=== PATIENT | female | born 1935 | race Caucasian/White ===

== ENCOUNTER 2016-07-18 12:04 | Emergency (ER) | payer MEDICARE, OTHER ==
--- NOTE | 2016-07-18 12:04 | ED.REPORT ---
HPI-Trauma Minor / Fall Date of Service July 18, 2016 ED Provider: Dr. Vora Pt is an 81 year old female with a hx of chronic back pain presenting to the ED via EMS after falling down 8 steps in a wheelchair just prior to arrival. She complains of lower back pain, mild neck pain, right arm pain, left hip pain and several abrasions. The pt was sitting in her wheelchair and thought the wheels were locked when they weren't so she rolled down the cement stairs. Denies LOC, hitting her head, new numbness or weakness, chest pain, SOB, abd pain. EMS report a GCS of 15. Pt takes 2 hydrocodone daily. Nursing Notes Stated Complaint: FALL Chief Complaint: Fall Nursing Notes Reviewed: Yes Scheduled Cephalexin (Cephalexin) 500 Mg Tablet 500 MG PO TID Scheduled PRN Bacitracin (Bacitracin Ointment) 28.4 Gm Oint...g. 1 APPLIC TP PRN PRN PRN wound care Hydrocodone-Acetaminophen 5-325 mg (Hydrocodone-Acetaminophen 5-325 mg) 1 Each Tablet 1-2 TABLET PO Q6H PRN PRN For Pain General Time Seen by MD: 12:04 Chief Complaint Fall down stairs Hx Obtained From: Patient, EMS Arrived By: Ambulance Onset Occurred: Just prior to arrival Symptom Duration: Since onset Caused by: Accidental, Fall down stairs Location: Arm right Back Neck Quality: Painful Severity: Current: Moderate Severity: Maximum: Severe Context: Immunizations Unknown Recent Healthcare: No recent doctor visit, No recent hospitalization Similar Sx Previous: No Risk Factors Head CT Imaging Inclusion Criteria: >/= 16 yo age GCS of 14 OR 15 Presentation w/in 24 hrs. Patient Presents WITHOUT: Loss of Conciousness, PostTraumatic Amnesia Consider Non Contrast CT for: >/= 60 yo Age Fall Down Steps >/= 5 WITHOUT LOCNo Focal Neuro Deficit, No GCS < 15, No Severe Headache RF Statements: Risk factors reviewed Past Medical History Past Medical History chronic back pain Past Surgical History hx of multiple back and neck surgeries Smoking History Current Every Day Smoker Social History Alcohol Use: Denies alcohol use Drug Use: Denies drug use Ambulatory Status Wheelchair Review of Systems Musculoskeletal: Reports: Back pain, Joint pain (Left hip), Neck pain Neurologic: Denies: Change LOC, Focal weakness, Headache, Numbness Complete sys rev & neg: except as marked. Physical Exam Initial Vital Signs See trauma flow sheet (vitals were normal) Initial VS: Reviewed Cardiovascular: Regular rate & rhythm, Heart sounds normal, Intact distal pulses Skin: Warm, Dry, No cyanosis Neurologic: Alert, Oriented, Nonfocal Psychiatric: Mood/affect normal, Behavior normal, Normal thought content General/Constitutional: Awake, Alert, Well appearing Neck: Supple Mild neck pain in C collar, mostly chronic. Head / Eyes: Normocephalic, PERRL, EOMI Abrasion to nose. No other signs of trauma. Respiratory / Chest: Breath sounds NL, Breath sounds = bilat, No respiratory distress, No chest tenderness, No chest wall deformity Not tachypnic or dyspnic. Upper Extremity / MS: Neurologic intact, Vascular intact Abrasions right elbow. Preserved flexion, extension, pronation and supination. No signs of fracture. Lower Extremity / Pelvis / MS: Neurologic intact, Vascular intact, Pelvis stable Severe multiple abrasions to dorsum of feet and several toes. Complete avulsion of left great toe. Weakness and numbness of both LE which is chronic. Trace right hip pain. Interpretation & Diagnostics Lab Results Interpretation Result Diagram: 07/18/16 1213 07/18/16 1213 Test 07/18/16 12:10 07/18/16 12:13 Prothrombin Time 10.0sec (8.1-12.5) Prothromb Time International Ratio 0.94ratio Activated Partial Thromboplast Time 25.5sec (22.8-33.0) White Blood Count 10.9th/mm3 (3.8-10.1) Red Blood Count 4.75mil/mm3 (3.90-5.20) Hemoglobin 14.6g/dL (12.0-15.6) Hematocrit 44.5% (35.0-46.0) Mean Corpuscular Volume 93.7fL (81-100) Mean Corpuscular Hemoglobin 30.7pg (27.0-35.0) Mean Corpuscular Hemoglobin Concent 32.8% (32.0-37.0) Red Cell Distribution Width 14.2% (12.3-15.4) Platelet Count 266bil/L (150-400) Neutrophils (%) (Auto) 74.1% (40-74) Lymphocytes (%) (Auto) 14.8% (14-46) Monocytes (%) (Auto) 7.3% (4-12) Eosinophils (%) (Auto) 2.9% (0-5) Basophils (%) (Auto) 0.3% (0-3) Sodium Level 142mEq/L (134-144) Potassium Level 4.3mEq/L (3.5-5.2) Chloride Level 104mEq/L (97-108) Carbon Dioxide Level 24mmol/L (18-29) Blood Urea Nitrogen 16mg/dL (8-27) Creatinine 0.90mg/dL (0.57-1.00) Estimat Glomerular Filtration Rate 86mL/min (>59) Glucose Level 131mg/dL (60-99) Calcium Level 9.2mg/dL (8.5-10.1) Magnesium Level 2.1mg/dL (1.6-2.6) Total Bilirubin 0.5mg/dL (0.0-1.2) Aspartate Amino Transf (AST/SGOT) 34U/L (0-50) Alanine Aminotransferase (ALT/SGPT) 26U/L (0-32) Alkaline Phosphatase 137U/L (25-165) Total Protein 7.1g/dL (6.4-8.4) Albumin 3.8g/dL (3.4-5.0) Alcohols < 10mg/dL (0-10) Lab Results Interpretation: CBC normal CMP normal X-Ray Chest Interpretation Chest Xray Interpretation: IMPRESSION: 1. No definite acute traumatic abnormality. Dictated by: Michael Mary M.D. on 07/18/2016 at 13:10 View: Portable, 1 view Interpretation / Wet Read by: Interpret - Radiologist X-Ray Interpretation Xray Interpretation: XRAY RIGHT TIBIA/FIBULA: IMPRESSION: 1. No definite acute fractures or dislocation. Dictated by: Michael Mary M.D. on 07/18/2016 at 13:04 XRAY LEFT TIBIA/FIBULA: IMPRESSION: 1. No fracture or dislocation. Dictated by: Michael Mary M.D. on 07/18/2016 at 13:04 XRAY RIGHT FOOT: IMPRESSION: 1. No definite acute fracture or dislocation with evaluation limited due to osteopenia. Dictated by: Michael Mary M.D. on 07/18/2016 at 13:09 XRAY LEFT FOOT: IMPRESSION: 1. Fractures of the 1st through 3rd metatarsals as well as the 2nd proximal phalanx. Dictated by: Michael Mary M.D. on 07/18/2016 at 13:06 XRAY RIGHT ELBOW: IMPRESSION: 1. No fracture or dislocation. Dictated by: Michael Mary M.D. on 07/18/2016 at 13:12 Interpretation / Wet Read by: Interpret - Radiologist CT Head Interpretation IMPRESSION: 1. No acute intracranial abnormality. 2. 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 3. Multiple plaque-like areas of skin thickening demonstrated in the scalp. Recommend correlation with clinical exam. Dictated by: Michael Mary M.D. on 07/18/2016 at 13:34 Study: Head CT no contrast Interpretation / Wet Read by: Interpret - Radiologist CT Abd / Pelvis Interpretation IMPRESSION: 1. No definite acute traumatic abnormality within the abdomen or pelvis. 2. Hypoattenuating lesion within the uncinate process of the pancreas. A pancreatic neoplasm cannot be excluded and further evaluation is recommended with dedicated pancreatic protocol CT or MRI if clinically indicated. 3. Indeterminate right adrenal nodule measuring up to 2.1 cm. Recommend further characterization with adrenal protocol CT or MRI. This may be combined with a pancreatic protocol MRI. 4. Nonspecific right adnexal cyst measuring up to 7 cm. Given patient's age, the differential includes a cystic ovarian neoplasm. Initial further evaluation may be obtained with pelvic ultrasound or further evaluation may be obtained with a pelvic MRI. 5. Mild fluid distention of the endometrium is abnormal for age. Recommend correlation with ultrasound or MRI. 6. Mild bladder wall thickening consistent with grade nonspecific cystitis. Recommend correlation with urinalysis. 7. Small right lower lobe pulmonary nodules and enlarged right infrahilar lymph node. Recommend short-term followup chest CT. Dictated by: Michael Mary M.D. on 07/18/2016 at 13:37 Study type: Abdominal CT IV contrast Interpretation / Wet Read by: Interpret - Radiologist CT C-Spine Interpretation IMPRESSION: 1. No fracture or subluxation. 2. Multilevel degenerative changes in the cervical spine as well as postsurgical changes status post ACDF at C5-C6. Dictated by: Michael Mary M.D. on 07/18/2016 at 13:47 Study type: CT no contrast Interpretation / Wet Read by: Interpret - Radiologist Procedures Laceration Nailbed Mgmt Procedure Performed by: ED physician Consent / Setup / Site Prep: Consent from patient, Time-out performed, Hand hygiene observed, Stand sterile technique Digit Involved: Great toe left Local Anesthesia: Lidocaine 1% Digital Block Procedure: Two digital nerve block Post-Procedure / Complications: Condition improved, Tolerated procedure well , Patient stable Re-Eval/Medical Decision Med Decision/Clinical Course This is an 81-year-old female brought by EMS as a strad by trauma following a fall down multiple stairs. This is the patient is generally wheelchair bound as she has had prior back surgery and has some chronic numbness and weakness of the legs, and she has lived in [place] but her in recent months, so she is up staying with family deciding whether not to relocate. Not on any anticoagulants. The story is that she was at the top of a set of stairs and thought the wheelchair was locked, when it accidentally was not, and she ended up rolling over the stairs, and then going down his stairs in a tumble in combination the wheelchair. She has chronic back pain and is complaining that her back pain so bit worse as her major complaint, she denies any loss of consciousness, she reports a little bit of neck soreness but gives different answers to whether not her neck bothers or were not. She denies any shortness of breath, denies any abdominal pain. Eyes any new numbness weakness paresthesias. On exam she is awake and answering questions appropriately. She is in no visible distress. She is abrasion on her nose, her she is in a c-collar, her lungs are clear to auscultation bilaterally no wheezes rales or rhonchi. Abdomen is soft, nontender without visible signs of trauma. She has multiple abrasions around the elbow, some minor skin tears there as well, but has preserved range of motion without overt signs of fracture or dislocation, and arms are neurovascularly intact, no clinical signs of compartment syndrome. Left upper extremity is normal. The lower extremities have chronic weakness with decreased sensation which she says is at baseline. She is skin tears to both dorsum of the feet, both feet are quite swollen, with the left foot worse than the right. There is initially skin tear, later identified to have several lacerations hidden in the skin tear, and the left great toe nail was completely avulsed. The patient underwent CT imaging his brain, cervical spine which were negative. Chest x-ray was negative. CT the abdomen and pelvis with spinal reconstructions was negative. Plain radiographs of the right elbow were negative. Plain radiographs of both lower extremity tib-fib's were negative, plainly best the right foot were negative, plain radiographs of the left revealed displaced distal metatarsal fractures of digits 1 through 3. When I went to numb the area for further work on the nail, and further evaluate the skin tear, identified that there actually lacerations across this area, indicating this is likely an open fracture-at this point podiatry was consulted and kindly came in. He recommended wound closure in the department, which they themselves performed. Please see their consultation note. The patient received a tetanus update, empiric Ancef. Be hospitalized. She is wheelchair bound at baseline. She is working to establish with a local PCP, and her family indicates are have an appointment for later this week-with her planning to discuss her chronic pain management on hydrocodone as well. The patient's nearly out and is concerned about this and uses about one tab twice a day. She has open fractures on today's exam I have written for additional doses for the short- term use. She is also being discharged from a course of cephalexin. She is to call Dr. Ibarra's office to schedule a wound check and reevaluation in about 3 days. She has any difficulties at home she is to return. She is to keep the appointment later this week to establish with a PCP. Wound care discussed. Discharge instructions reviewed. Source of Hx: EMS Re-Evaluation/Progress #1: Time of Eval: 14:12 Patient Status: Condition improved Re-Evaluation/Progress Note: Discussed CT and RAD results and spoke to the pt's family. Re-Evaluation/Progress #2: Time of Eval: 14:36 Patient Status: Condition improved Re-Evaluation/Progress #3: Time of Eval: 15:16 Patient Status: Condition improved Re-Evaluation/Progress Note: Pt having trouble breathing due to anxiety. Discussed plan for podiatry consultation. Consultation : Referral / Consult Name: Serg Ibarra DPM Call Returned at: 15:10 Note: Podiatry. Will see the patient. Counseled Regarding: Diagnosis, Lab results, Need for follow-up, When/why to return to ED Discharge & Departure Impression: Primary Impression: Open fracture of metatarsal of left foot Encounter type: initial encounter Metatarsal bone: first Fracture alignment : displaced Qualified Code: S92.312B - Displaced fracture of first metatarsal bone, left foot, initial encounter for open fracture Additional Impressions: Back pain Back pain location: low back pain Chronicity: unspecified Back pain laterality: midline Sciatica presence: unspecified whether sciatica present Qualified Code: M54.5 - Low back pain Multiple contusions Fall (on) (from) unspecified stairs and steps, initial encounter Abrasion, multiple sites Disposition: Home Discharge Condition All VS Reviewed: Yes Condition: Improved Additional Instructions: 1. You had CT scans of the head, cervical spine, lumbar spine and abdomen-but no fractures were identified. X-rays of the right elbow, right and left legs, right and left foot revealed fractures of 3 toes of the left foot. He also had a laceration that was repaired by the solution coordinator Dr. Ibarra. 2. You received a tetanus update in the department today. 3. You received A dose of intravenous antibiotics. 4. Take the antibiotic cephalexin 500 mg 3 times a day for 7 days starting tomorrow. 5. Take hydrocodone/APAP 5/325 1/2 tab up to 2 tabs every 6 hours as needed for pain. Note: You want to reduce this movement dose back down to the 1 or 2 tabs a day as soon as tolerated, he do not want to remain on a higher dose for any substantial length of time. Keep the appointment upcoming this week with her new primary care physician to help facilitate ear pain management. 6. Keep the abrasions clean. Okay to shower and wash gently, but do not soak. Apply antibiotic ointment daily such as Neosporin or bacitracin. 7. Return if any signs of infection: Redness, swelling, increasing pain, fever. 8. Use a hard soled shoe to facilitate weight transfers from wheelchair 9. Call tomorrow for an appointment with the solution coordinator Dr. Ibarra for a wound recheck and suture removal. Referrals: Serg Ibarra DPM Scribe Attestation Portions of this note were transcribed by Meenakshi Braun. I, Dr. Vora personally performed the history, physical exam and medical decision-making; I reviewed and confirmed the accuracy of the information in the transcribed note. Signed by: Enmanuel Sky, 07/18/2016 at 1637. copies to: Serg Ibarra DPM, Matthew F MD July 18, 2016 12:04 MEENAKSHI BRAUN July 18, 2016 12:11
[2016-07-18] MEDS ORDERED: Ondansetron 2 mg/mL 2 mL Inj IVPUSH ONE (12:15)
[2016-07-18] MEDS ORDERED: TdaP Vaccine 0.5 mL Inj IM ONE (12:15)
[2016-07-18] MEDS ORDERED: Lidocaine-Epi-Tetracaine Solution 3 mL Syringe TOPICAL ONE (12:15)
[2016-07-18] MEDS ORDERED: HYDROmorphone 0.5 mg/0.5 mL iSecure Syringe IVPUSH PRN (12:15)
[2016-07-18] MEDS ORDERED: Bacitracin Ointment Packet TOPICAL ONE (12:15)
[2016-07-18 12:22] LABS: BASOPHILS % (AUTO) 0.3 % (0-3); EOSINOPHILS % (AUTO) 2.9 % (0-5); MONOCYTES % (AUTO) 7.3 % (4-12); Mean Corpuscular Hemoglobin 30.7 pg (27.0-35.0); Mean Corpuscular Volume 93.7 fL (81-100); NEUTROPHILS % (AUTO) 74.1 % (40-74); Platelet Count 266 bil/L (150-400)
[2016-07-18 12:35] LABS: INR 0.94 ratio
[2016-07-18 12:50] LABS: Magnesium 2.1 mg/dL (1.6-2.6)
--- NOTE | 2016-07-18 13:11 | DRSVH ---
PROCEDURE: X-RAY LEFT TIBIA/FIBULA, TWO VIEWS ([id number]) INDICATIONS: trauma TECHNIQUE: 2 views of the tibia and fibula were acquired. COMPARISON: None. FINDINGS: Bones: No fractures or dislocations. No suspicious bony lesions. Soft tissues: No suspicious soft tissue calcifications or masses. IMPRESSION: 1. No fracture or dislocation. Dictated by: Michael Mary M.D. on 07/18/2016 at 13:04 Approved by: Michael Mary M.D. on 07/18/2016 at 13:04
--- NOTE | 2016-07-18 13:13 | DRSVH ---
PROCEDURE: X-RAY RIGHT TIBIA/FIBULA, TWO VIEWS ([id number]) INDICATIONS: trauma TECHNIQUE: 2 views of the tibia and fibula were acquired. COMPARISON: None. FINDINGS: Bones: No acute fractures or dislocations. There is osteopenia. There is a fixation screw within t he medial malleolus distally in the tibia. There is a sclerotic lesion partially visualized within t he distal femoral shaft likely representing a bone infarct or enchondroma. Soft tissues: No suspicious soft tissue calcifications or masses. IMPRESSION: 1. No definite acute fractures or dislocation. Dictated by: Michael Mary M.D. on 07/18/2016 at 13:04 Approved by: Michael Mary M.D. on 07/18/2016 at 13:06
--- NOTE | 2016-07-18 13:15 | DRSVH ---
PROCEDURE: X-RAY LEFT FOOT COMPLETE, MINIMUM THREE VIEWS ([id number]) INDICATIONS: trauma TECHNIQUE: 3 views of the foot were acquired. COMPARISON: None. FINDINGS: Bones: There is osteopenia limiting evaluation. There is a mildly displaced fracture in the proximal 1st metatarsal shaft. There are mildly displaced fractures of the 2nd and 3rd metatarsal necks. The re is also a fracture in the shaft of the 2nd proximal phalanx. Soft tissues: There is soft tissue swelling in the forefoot. IMPRESSION: 1. Fractures of the 1st through 3rd metatarsals as well as the 2nd proximal phalanx. Dictated by: Michael Mary M.D. on 07/18/2016 at 13:06 Approved by: Michael Mary M.D. on 07/18/2016 at 13:08
--- NOTE | 2016-07-18 13:17 | DRSVH ---
PROCEDURE: X-RAY RIGHT FOOT COMPLETE, MINIMUM THREE VIEWS ([id number]) INDICATIONS: trauma TECHNIQUE: 3 views of the foot were acquired. COMPARISON: None. FINDINGS: Bones: There is osteopenia limiting evaluation. No definite acute fractures or dislocations. There is a fixation screw in the distal tibia. Soft tissues: There is soft tissue swelling dorsally in the forefoot. IMPRESSION: 1. No definite acute fracture or dislocation with evaluation limited due to osteopenia. Dictated by: Michael Mary M.D. on 07/18/2016 at 13:09 Approved by: Michael Mary M.D. on 07/18/2016 at 13:10
--- NOTE | 2016-07-18 13:19 | DRSVH ---
PROCEDURE: X-RAY CHEST ONE VIEW, PORTABLE ([id number]) INDICATIONS: trauma TECHNIQUE: One view of the chest was acquired. COMPARISON: None. FINDINGS: Surgical changes and devices: There are postsurgical changes within the lower cervical spine partiall y visualized. Lungs and pleura: No pleural effusions or pneumothorax. Lungs are clear. Mediastinum: Mediastinal contours appear normal. Heart size is normal. Bones and chest wall: No displaced fracture identified. Overlying soft tissues appear unremarkable. IMPRESSION: 1. No definite acute traumatic abnormality. Dictated by: Michael Mary M.D. on 07/18/2016 at 13:10 Approved by: Michael Mary M.D. on 07/18/2016 at 13:12
--- NOTE | 2016-07-18 13:20 | DRSVH ---
PROCEDURE: X-RAY RIGHT ELBOW COMPLETE, MINIMUM THREE VIEWS ([id number]) INDICATIONS: trauma TECHNIQUE: 3 views of the elbow were acquired. COMPARISON: None. FINDINGS: Bones: No fractures or dislocations. No suspicious bony lesions. Soft tissues: No elbow joint effusion. No suspicious soft tissue calcifications. IMPRESSION: 1. No fracture or dislocation. Dictated by: Michael Mary M.D. on 07/18/2016 at 13:12 Approved by: Michael Mary M.D. on 07/18/2016 at 13:13
--- NOTE | 2016-07-18 13:44 | DRSVH ---
PROCEDURE: CT BRAIN WITHOUT CONTRAST ([id number]) INDICATIONS: fall TECHNIQUE: Noncontrast 4.5 mm thick angled axial sections acquired from the foramen magnum to the vertex, with c oronal reformats. COMPARISON: None. FINDINGS: Image quality: Excellent. CSF spaces: Basal cisterns are patent. No extra-axial fluid collections. Ventricles are normal in size and shape. Brain: No intracranial hemorrhage, mass, or mass effect. There are bilateral areas of encephalomala kenneth involving the left occipital lobe, left medial temporal lobe, and left periventricular white guillaume er consistent with sequela of prior infarcts. Skull and face: Calvarium and visualized facial bones appear intact, without suspicious lesions. Th ere are is mild soft tissue swelling in the right forehead region. There are a few bilateral scatter ed areas of plaque-like skin thickening along the scalp. Sinuses: Visualized sinuses and mastoids are clear. IMPRESSION: 1. No acute intracranial abnormality. 2. 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 3. Multiple plaque-like areas of skin thickening demonstrated in the scalp. Recommend correlation w ith clinical exam. Dictated by: Michael Mary M.D. on 07/18/2016 at 13:34 Approved by: Michael Mary M.D. on 07/18/2016 at 13:37
--- NOTE | 2016-07-18 13:54 | DRSVH ---
PROCEDURE: CT ABDOMEN AND PELVIS WITH CONTRAST TRAUMA ([id number]) INDICATIONS: fall TECHNIQUE: After the administration of intravenous contrast, 5 mm thick sections acquired from the diaphragms to the symphysis. 5 mm thick coronal and sagittal reformats were acquired. Optional 10-minute delayed imaging may be performed from the kidneys to the bladder. For radiation dose reduction, the followi ng was used: automated exposure control, adjustment of mA and/or kV according to patient size. COMPARISON: None. FINDINGS: Image quality: There is mild motion artifact. ABDOMEN: Lung bases: There is mild dependent atelectasis in the lung bases. In addition, there are a few scat tered small nodular opacities measuring up to 9 mm within the right lower lobe on series 6 image 2. There is a partially visualized right hilar lymph node measuring up to 1.2 cm. Heart size is normal. No pericardial effusion. Inferior ribs are intact. No basal pleural effusions or pneumothorax. Solid organs: Liver and spleen are normal in size and enhancement, without lacerations. There are m ultiple small layering gallstones within the gallbladder without wall thickening or pericholecystic f luid. Biliary system is non-dilated. There is a heterogeneous right adrenal nodule measuring up to 2.1 cm which is indeterminate. There is a small hypoattenuating lesion within the uncinate process o f the pancreas measuring approximately 1.7 x 1.0 cm. The kidneys demonstrate no hydronephrosis or pe rinephric fluid collections. A left renal cortical cyst is noted. Peritoneum and bowel: No free fluid or air. Unenhanced bowel loops demonstrate normal wall thicknes s. There is moderate stool distention of the rectum. Nodes and vessels: No retroperitoneal or mesenteric adenopathy. Aorta and inferior vena cava are no rmal in size and enhancement. Miscellaneous: No ventral hernias. PELVIS: Genitourinary: There is mild concentric bladder wall thickening. There is a right adnexal cyst measu ring 7.0 x 5.5 cm. There is a small amount of fluid within the endometrium. Miscellaneous: No inguinal hernias or adenopathy. Bones: Pelvic ring and hip joints appear intact. There are surgeon is posteriorly within the lower lumbar spine. No vertebral compression fractures. IMPRESSION: 1. No definite acute traumatic abnormality within the abdomen or pelvis. 2. Hypoattenuating lesion within the uncinate process of the pancreas. A pancreatic neoplasm cannot be excluded and further evaluation is recommended with dedicated pancreatic protocol CT or MRI if cl inically indicated. 3. Indeterminate right adrenal nodule measuring up to 2.1 cm. Recommend further characterization wi adrenal protocol CT or MRI. This may be combined with a pancreatic protocol MRI. 4. Nonspecific right adnexal cyst measuring up to 7 cm. Given patient's age, the differential inclu lashanda a cystic ovarian neoplasm. Initial further evaluation may be obtained with pelvic ultrasound or further evaluation may be obtained with a pelvic MRI. 5. Mild fluid distention of the endometrium is abnormal for age. Recommend correlation with ultraso und or MRI. 6. Mild bladder wall thickening consistent with grade nonspecific cystitis. Recommend correlation w ith urinalysis. 7. Small right lower lobe pulmonary nodules and enlarged right infrahilar lymph node. Recommend ehsan rt-term followup chest CT. Dictated by: Michael Mary M.D. on 07/18/2016 at 13:37 Approved by: Michael Mary M.D. on 07/18/2016 at 13:47
--- NOTE | 2016-07-18 13:57 | DRSVH ---
PROCEDURE: CT CERVICAL SPINE WITHOUT CONTRAST ([id number]) INDICATIONS: fall TECHNIQUE: Noncontrast 3 mm thick sections acquired from the skull base to the T4 level. Sagittal and coronal r eformats were then constructed. For radiation dose reduction, the following was used: automated exp osure control, adjustment of mA and/or kV according to patient size. COMPARISON: None. FINDINGS: Image quality: Excellent. Bones: No acute fractures or dislocations. There are postsurgical changes consistent with prior ant erior fixation and fusion at C5-C6. There is multilevel disc space narrowing throughout the cervical spine elsewhere including moderate narrowing at C2-C3, C3-C4, and C6-C7. There is also multilevel f acet arthropathy most prominent in the mid cervical spine. Visualized superior ribs are intact. Soft tissues: Prevertebral soft tissues are normal in thickness. No paravertebral hematomas. No ap ical pneumothoraces. There are emphysematous changes within the visualized lungs. IMPRESSION: 1. No fracture or subluxation. 2. Multilevel degenerative changes in the cervical spine as well as postsurgical changes status post ACDF at C5-C6. Dictated by: Michael Mary M.D. on 07/18/2016 at 13:47 Approved by: Michael Mary M.D. on 07/18/2016 at 13:50
[2016-07-18] MEDS ORDERED: BUPIVACAINE 0.25%/EPI 50 mL Inj NERVEBLOCK ONE (14:20)
[2016-07-18] MEDS ORDERED: Bupivacaine 0.5%/EPI 50 mL Inj ONE ×2 (14:20→14:29)
[2016-07-18] MEDS ORDERED: CeFAZolin Inj 2 GM in IV Premix 1 EACH IV ONE (14:45)
[2016-07-18] MEDS ORDERED: HYDR-4003 PO (16:35)
[2016-07-18] MEDS ORDERED: BACI28.4 TP (16:37)
[2016-07-18] MEDS ORDERED: CEPH500T PO (16:37)
[2016-07-18] MEDS ORDERED: HYDROcodone-APAP 5-325 mg Tablet PO ONE (16:50)
== END 2016-07-18 17:38 | disposition home or self-care (01) ==
LOC: SED 12:04
DX: S92.312B Displaced fracture of first metatarsal bone, left foot, initial encounter for open fracture (principal); S91.202A Unspecified open wound of left great toe with damage to nail, initial encounter; S00.31XA Abrasion of nose, initial encounter; S50.311A Abrasion of right elbow, initial encounter; S90.416A Abrasion, unspecified lesser toe(s), initial encounter; S90.819A Abrasion, unspecified foot, initial encounter; M25.551 Pain in right hip; M54.2 Cervicalgia; G89.29 Other chronic pain; W10.9XXA Fall (on) (from) unspecified stairs and steps, initial encounter; Y93.89 Activity, other specified; Y99.8 Other external cause status; Y92.89 Other specified places as the place of occurrence of the external cause; F17.200 Nicotine dependence, unspecified, uncomplicated; Z99.3 Dependence on wheelchair; Z23 Encounter for immunization
CPT/HCPCS: 36415; 64450; 70450; 71010; 72125; 73080; 73590; 73630; 74177; 80053; 83735; 85025; 85610; 85730; 86850; 86870; 90471; 90715; 96365; 96375; 99285; G0480; J0690; J1170; J2060; J2405; Q9967

== ENCOUNTER 2016-07-27 09:33 | Emergency (ER) | payer MEDICARE, OTHER ==
[~2016-07-27] VITALS: Ht 165.1 cm; Wt 90.9 kg
[~2016-07-27 09:33] MED LIST: BACI28.4 TP; CEPH500T PO; HYDR-4003 PO
[2016-07-27 09:45] VITALS: BP 144/62; PULSE 96; RESP 28; O2SAT 90
--- NOTE | 2016-07-27 09:51 | ED.REPORT ---
HPI-General Illness Date of Service July 27, 2016 ED Provider: James Johnson MD Patient is an 81 year old female with a history of chronic back pain and multiple back surgeries who was seen on 07/18/16 for falling down 8 steps while in a wheelchair and has fractured toes and skin tears on both dorsum of the feet. She presents today complaining of leg/back spasms. Associated symptoms include insomnia, ongoing right shoulder pain since her fall, leg pain, back pain and possible dehydration. She reports that she has shortness of breath, a cough and leg swelling but these are not new symptoms. The patient denies chest pain or dysuria or any lateralizing weakness, numbness, tingling. Patient was seen at a data collection specialist this morning for foot care who recommended she come to the ED due to her ongoing pain. Her recently passed and the patient has been staying here with her daughters while trying to establish a primary care physician. She admits that she has a very high level of stress and anxiety recently and she also has insight that this is likely contributing to her presentation. The patient has tried using Hydrocodone, Oxycodone and muscle relaxants with no relief of pain. She was prescribed Keflex on 07/18/16 for the tears on her feet. She denies having a history of COPD, asthma or CHF. She also states that she has not been getting up out of her wheelchair because she was told not to bear weight on her feet. Family members suspect that her immobility may also be contributing to her symptoms. The patient states that she is unwilling to go to a care facility and is very resistant to be admitted repeatedly requesting to go home during evaluation. Nursing Notes Stated Complaint: FAILURE TO THIRVE/PAIN Chief Complaint: General Complaint Nursing Notes Reviewed: Yes Allergies: Coded Allergies: No Known Allergies (Unverified , 07/27/16) Scheduled Cephalexin (Cephalexin) 500 Mg Tablet 500 MG PO TID Scheduled PRN Bacitracin (Bacitracin Ointment) 28.4 Gm Oint...g. 1 APPLIC TP PRN PRN PRN wound care Hydrocodone-Acetaminophen 5-325 mg (Hydrocodone-Acetaminophen 5-325 mg) 1 Each Tablet 1-2 TABLET PO Q6H PRN PRN For Pain General Time Seen by MD: 09:47 Chief Complaint Other (leg spasms) Hx Obtained From: Patient, Daughter Arrived By: Walk-in Sudden in Onset?: No Onset Occurred: 1 week ago Symptom Duration: Since onset Location: : Leg left: Leg right Recent Healthcare: No recent hospitalization, Recent doctor visit Past Medical History Past Medical History chronic back pain Past Surgical History hx of multiple back and neck surgeries Smoking History Current Every Day Smoker Social History Alcohol Use: Denies alcohol use Drug Use: Denies drug use Other Social History: Good social support, From out of town Ambulatory Status Wheelchair Review of Systems leg spasms Full Review of Systems Respiratory: Reports: Non-productive cough, Shortness of breath Cardiovascular: Denies: Chest pain Female: Denies: Dysuria Musculoskeletal: Reports: Back pain, Extremity pain (right shoulder) Neurologic: Denies: Numbness, Weakness Psychiatric: Reports: Anxiety, Insomnia, Stress Complete sys rev & neg: except as marked. Physical Exam Vital Signs Vital Signs Date Time Temp Pulse Resp B/P Pulse Ox O2 Delivery O2 Flow Rate FiO2 07/27/16 09:45 36.4 96 28 144/62 90 Room Air Initial VS: Reviewed General/Constitutional: Awake, Alert, Not toxic appearing appears uncomfortable Head / Eyes: Atraumatic, Normocephalic, PERRL, EOMI Respiratory / Chest: Atraumatic, No respiratory distress Abdomen: Atraumatic, Soft, Non-tender Back: Atraumatic, Non-tender well healed midline lumbar surgical scar well healed midline cervical surgical scar no palpable deformities of the spine occasional spasming of her back LOWER EXTREMITIES: 2+bilateral pitting edema up to the knee occasional spasms in the legs ANKLE/FOOT: superficial laceration to the left foot with sutures that are healing well with no signs of infection Skin: Atraumatic, Color NL, No rash, Warm, Dry Neurologic: Oriented X3, Speech NL, No motor deficits, No sensory deficits no lateralizing weakness, numbness or tingling no facial droop Abnormal Mood/Affect: Positive: Anxious Interpretation & Diagnostics Interpretation & Diagnostics: 07/18/[address]: unremarkable, no sign of acute trauma ABD/PELVIS CT: unremarkable, no sign of acute trauma CERVICAL SPINE CT: unremarkable, no sign of acute trauma Re-Eval/Medical Decision Med Decision/Clinical Course Patient is an 81 year old female with a history of chronic back pain and multiple back surgeries who was seen on 07/18/16 for falling down 8 steps while in a wheelchair and has fractured toes and skin tears on both dorsum of the feet. She presents today complaining of leg/back spasms. Associated symptoms include insomnia, ongoing right shoulder pain since her fall, leg pain, back pain and possible dehydration. She reports that she has shortness of breath, a cough and leg swelling but these are not new symptoms. The patient denies chest pain or dysuria or any lateralizing weakness, numbness, tingling. Patient was seen at a data collection specialist this morning for foot care who recommended she come to the ED due to her ongoing pain. Her recently passed and the patient has been staying here with her daughters while trying to establish a primary care physician. She admits that she has a very high level of stress and anxiety recently and she also has insight that this is likely contributing to her presentation. The patient has tried using Hydrocodone, Oxycodone and muscle relaxants with no relief of pain. She was prescribed Keflex on 07/18/16 for the tears on her feet. She denies having a history of COPD, asthma or CHF. She also states that she has not been getting up out of her wheelchair because she was told not to bear weight on her feet. Family members suspect that her immobility may also be contributing to her symptoms. The patient states that she is unwilling to go to a care facility and is very resistant to be admitted repeatedly requesting to go home during evaluation. Here in the emergency department the patient is afebrile with stable vital signs and examination as above. I reviewed her previous extensive workup which involved a total spine CT, head CT as well as multiple plain films. I do not see any evidence of significant traumatic injury and she has not had any recurrent falls. She has not had any symptoms of acute infectious process, acute coronary syndrome or strokelike symptoms. The patient's family state that they have been managing her pain with hydrocodone, oxycodone and muscle relaxers but that these medications do little to treat her pain and it did not cause her to become confused. I had a long conversation with the patient's family explained that I do not feel that there are many options for further pharmacologic management of her symptoms as she is already taking muscle relaxers and opiates without effect and experiencing significant adverse side effects. Family had actually been trying to cut back on these medications. I offered the family admission however I explained that given her unwillingness to go to a care facility that brief admission to the hospital would be unlikely to result in any good long- term solutions. The family states that they do not particularly want the patient admitted but that they do feel they could use more help in the home and would like to look at other options. I ordered physical therapy evaluation on the patient as well as social work/ case management to begin process of arranging home health. Meanwhile, the patient decided that she no longer wanted to wait in the emergency room although she had been here for just one hour. Patient's family requested that they be discharged. They state that they will follow up with her primary care physician to get referral to physical therapy and for home health arrangements. Despite my best efforts to make good outpatient arrangements for this patient she refused further treatment here in the emergency department and was therefore discharged at her request. Prior to discharge follow-up and return precautions were reviewed in detail with the patient as well as family who verbalized understanding and agreement with the plan. The patient was discharged in stable condition. Time of Eval: 10:40 Re-Evaluation/Progress Note: Patient and patient's family state they would not like to wait to talk to the physical therapist or social media job titles and would like to leave the emergency department. ED warning and discharge instructions were given. The patient understands and agrees to the plan for discharge. All questions were addressed. Counseled Regarding: Diagnosis, Need for follow-up, When/why to return to ED Discharge & Departure Primary Impression: Fall from ground level Additional Impressions: Skin tear Opiates and related narcotics causing adverse effect Encounter type: initial encounter Qualified Code: T40.605A - Adverse effect of unspecified narcotics, initial encounter Acute situational disturbance Muscle spasm Anxiety Noncompliance by refusing intervention or support Disposition: Home Discharge Condition All VS Reviewed: Yes Condition: Stable Additional Instructions: Thank you for seeking care at the emergency room. You were seen because you have been having spasms in your back and legs and having difficulty caring for yourself. I ordered a physical therapy evaluation and discussed the situation with our social media job titles to help arrange outpatient physical therapy and home health. You decided that you do not want to be in the emergency department and left before any of this could be completed. Please call your primary care doctor today to work on making these arrangements. I really think that he would benefit from these things. In the meantime, I highly recommend avoiding opiate pain medication such as hydrocodone/oxycodone and muscle relaxers as these can cause confusion and weakness and falling. Our primary goal today in the ED was to evaluate you for any life-threatening conditions. Your evaluation was reassuring. You should return to the ED immediately if you develop confusion, fevers, vomiting, cough, shortness of breath, chest pain, lightheadedness, weakness or any other concerning signs or symptoms. If you change your mind and want to be seen by a physical therapist, social media job titles or get more help you can always come back to the emergency room. Thank you for letting us partake in your care today. Referrals: [facility] Portions of this note were transcribed by Ca Santos. I, Dr. Johnson personally performed the history, physical exam and medical decision-making; I reviewed and confirmed the accuracy of the information in the transcribed note. Signed by: Enmanuel Soto, 07/27/16 and 1050 copies to: [facility] James Johnson MD July 27, 2016 09:51 Jamila Santos July 27, 2016 10:11
[2016-07-27 11:11] VITALS: PULSE 97; RESP 24; O2SAT 88
== END 2016-07-27 11:10 | disposition home or self-care (01) ==
LOC: SED 09:33
DX: M62.830 Muscle spasm of back (principal); M62.831 Muscle spasm of calf; S92.911D Unspecified fracture of right toe(s), subsequent encounter for fracture with routine healing; S92.912D Unspecified fracture of left toe(s), subsequent encounter for fracture with routine healing; S91.301D Unspecified open wound, right foot, subsequent encounter; S91.302D Unspecified open wound, left foot, subsequent encounter; W10.8XXD Fall (on) (from) other stairs and steps, subsequent encounter; Y92.9 Unspecified place or not applicable; Y93.89 Activity, other specified; Y99.8 Other external cause status; F43.0 Acute stress reaction; F41.9 Anxiety disorder, unspecified; T40.2X5A Adverse effect of other opioids, initial encounter; X58.XXXA Exposure to other specified factors, initial encounter; Y93.9 Activity, unspecified; Y99.9 Unspecified external cause status; M54.9 Dorsalgia, unspecified; G89.29 Other chronic pain; F17.200 Nicotine dependence, unspecified, uncomplicated; Z91.19 Patient's noncompliance with other medical treatment and regimen; Z98.890 Other specified postprocedural states; Z99.3 Dependence on wheelchair